=== PATIENT | female | born 1965 | race African-American/Black ===

== ENCOUNTER 2017-02-17 18:47 | Emergency (ER) | payer MEDICAID ==
[~2017-02-17] VITALS: Ht 167.6 cm; Wt 111.6 kg
[~2017-02-17 18:47] MED LIST: ASPI-252 PO; ATOR20TA58 PO; CITA20TA5 PO; CYCL10TA2 PO; DOCU-109 PO; FERR-26 PO; GABA300C8 PO; HYDR-2766 PO; HYDR50TA PO; IBUP-1007 PO; LIDO35.4 TP; LISI40TA PO; METF500T4 PO; QUET25TA5 PO; TRAM50TA PO; TRAZ100T12 PO
[2017-02-17] MEDS ORDERED: oxyCODONE/APAP 10/325 1 TAB TABLET PO ONE (19:15)
--- NOTE | 2017-02-17 19:27 | ED.ADGEN ---
Past Medical History Past Medical History: Anemia, Bipolar, Diabetes-Type II, DVT, High Cholesterol , Hypertension, Other Additional Past Medical Histor: SI,SCIATICA,MOOD DISORDER Past Surgical History: , Other Additional Past Surgical Histo: D&CS Alcohol Use: None Drug Use: None Adult General Chief Complaint Chief Complaint: KNEE SWELLING HPI HPI Patient is a 52 year old -Armenian Armenian female seen at an outside ED 5 days ago at outside ED and diagnosed with DVT of right lower extremity and prescribed Xarelto. Patient is compliant with medication, but reports increased posterior and anterior right leg pain tenderness and swelling. Denies chest pain shortness of breath. No other acute symptoms or complaints. Review of Systems Review of Systems Review symptoms as per history of present illness. All other review symptoms are negative. Current Medications Current Medications Current Medications Medications (Trade) Dose Ordered Sig/Treva Start Time Stop Time Status Last Admin Dose Admin Oxycodone/ Acetaminophen (Percocet 10/325) 1 tab 1X ONCE 02/17/17 19:15 02/17/17 19:16 DC 02/17/17 19:45 1 TAB Tramadol HCl (Ultram) 50 mg 1X ONCE 02/17/17 21:00 02/17/17 21:01 DC 02/17/17 20:55 50 MG Allergies Allergies Allergies Coded Allergies Type Severity Reaction Last Updated Verified levofloxacin Allergy Intermediate 05/29/16 Yes Physical Exam Physical Exam Constitutional: Well developed, well nourished, anxious. Moderate discomfort secondary to pain. HENT: Normocephalic, atraumatic, bilateral external ears normal, oropharynx moist. Eyes: PERRLA, EOMI, conjunctiva normal. Neck: Normal range of motion. Cardiovascular:Heart rate regular. Lungs & Thorax: Bilateral breath sounds clear to auscultation. Abdomen: Bowel sounds normal, soft, no tenderness. Skin: Warm, dry. Back: No tenderness. Extremities: Right lower extremity tenderness swelling, leg approximately 30% more swollen than right extending from foot to distal thigh. Femoral, popliteal pulses 2+ and symmetric. No appreciated erythema. Positive for right Homans sign. Neurologic: Alert and oriented X 3, normal motor function, normal sensory function, no focal deficits noted. Current Patient Data Vital Signs Vital Signs Date Time Temp Pulse Resp B/P (MAP) Pulse Ox O2 Delivery O2 Flow Rate FiO2 02/17/17 20:55 18 Room Air 02/17/17 20:24 87 140/111 (121) 95 02/17/17 18:51 99.1 99.1 Lab Values Laboratory Tests Test 02/17/17 19:45 White Blood Count 6.0 x10^3/uL (4.0-11.0) Red Blood Count 4.16 x10^6/uL (3.50-5.40) Hemoglobin 10.8 g/dL (12.0-15.5) L Hematocrit 33.4 % (36.0-47.0) L Mean Corpuscular Volume 80 fL (79-100) Mean Corpuscular Hemoglobin 26 pg (25-35) Mean Corpuscular Hemoglobin Concent 32 g/dL (31-37) Red Cell Distribution Width 17.2 % (11.5-14.5) H Platelet Count 264 x10^3/uL (140-400) Sodium Level 136 mmol/L (136-145) Potassium Level 3.6 mmol/L (3.5-5.1) Chloride Level 100 mmol/L (98-107) Carbon Dioxide Level 25 mmol/L (21-32) Anion Gap 11 (6-14) Blood Urea Nitrogen 5 mg/dL (7-20) L Creatinine 0.8 mg/dL (0.6-1.0) Estimated GFR (Cockcroft-Gault) 91.5 BUN/Creatinine Ratio 6 (6-20) Glucose Level 352 mg/dL (70-99) H Calcium Level 9.3 mg/dL (8.5-10.1) Total Bilirubin 0.2 mg/dL (0.2-1.0) Aspartate Amino Transferase (AST) 17 U/L (15-37) Alanine Aminotransferase (ALT) 28 U/L (14-59) Alkaline Phosphatase 158 U/L (46-116) H Total Protein 7.8 g/dL (6.4-8.2) Albumin 3.6 g/dL (3.4-5.0) Albumin/Globulin Ratio 0.9 (1.0-1.7) L Laboratory Tests 02/17/17 19:45 Laboratory Tests 02/17/17 19:45 EKG EKG [] Radiology/Procedures Radiology/Procedures [CV ultrasound: Lower extremity chronic nonoccluded DVT of right lower extremity ] Course & Med Decision Making Course & Med Decision Making Pertinent Labs and Imaging studies reviewed. (See chart for details) [Right lower extremity pain in the setting of recently chronic nonoccluded DVT currently anticoagulated. Recommend supportive care with PCP follow-up for management of chronic pain] Dragon Disclaimer Dragon Disclaimer This electronic medical record was generated, in whole or in part, using a voice recognition dictation system. CHELSEY OLEA DO Feb 17, 2017 19:27
[2017-02-17 19:54] LABS: HEMATOCRIT 33.4 % (36.0-47.0); HEMOGLOBIN 10.8 g/dL (12.0-15.5); RED BLOOD COUNT 4.16 x10^6/uL (3.50-5.40); RED CELL DISTRIBUTION WIDTH 17.2 % (11.5-14.5)
[2017-02-17 20:03] LABS: CALCIUM 9.3 mg/dL (8.5-10.1); CREATININE 0.8 mg/dL (0.6-1.0); GFR 91.5; POTASSIUM 3.6 mmol/L (3.5-5.1)
[2017-02-17 20:09] LABS: ALBUMIN 3.6 g/dL (3.4-5.0); ALBUMIN/GLOBULIN RATIO 0.9 (1.0-1.7); TOTAL BILIRUBIN 0.2 mg/dL (0.2-1.0); TOTAL PROTEIN 7.8 g/dL (6.4-8.2)
[2017-02-17 20:24] VITALS: BP 140/111
--- NOTE | 2017-02-17 20:37 | RAD ---
EXAM: Right lower extremity venous Doppler. HISTORY: Increasing right lower extremity pain/swelling. COMPARISON: February 07, 2017, [facility] FINDINGS: Grayscale and Doppler analysis of the right lower extremity deep venous system was performed with graded compression and augmentation. The common femoral, greater saphenous, superficial femoral, popliteal and calf veins were assessed. There is nonocclusive thrombus within the right popliteal, lesser saphenous, posterior tibial veins and one peroneal vein. On the prior study, thrombus was seen within the distal superficial femoral vein. The interval difference may be from differences in visualization in the setting of edema and body habitus. Subcutaneous edema is noted. IMPRESSION: 1. Nonocclusive thrombus within the right popliteal, lesser saphenous, posterior tibial and peroneal veins may be chronic, but appears increased since a prior study on February 07, 2017. However, the suggested difference in extent may be from differing visualization given technical factors. Correlate clinically for increasing symptoms to exclude progression of thrombosis. Electronically signed by: Moreno Haas MD (02/17/2017 8:34 PM)
[2017-02-17] MEDS ORDERED: traMADol 50 MG TABLET PO ONE (21:00)
== END 2017-02-17 21:01 | disposition home or self-care (01) ==
LOC: ER 18:53
DX: I82.531 Chronic embolism and thrombosis of right popliteal vein (principal); E11.9 Type 2 diabetes mellitus without complications; E78.00 Pure hypercholesterolemia, unspecified; I10 Essential (primary) hypertension; F31.9 Bipolar disorder, unspecified; F39 Unspecified mood [affective] disorder; Z79.01 Long term (current) use of anticoagulants; Z88.1 Allergy status to other antibiotic agents
CPT/HCPCS: 36415; 80053; 85027; 93971; 99285-25

== ENCOUNTER 2017-04-22 14:47 | Emergency (ER) | payer MEDICAID, OTHER ==
[~2017-04-22] VITALS: Ht 167.6 cm; Wt 106.6 kg
[2017-04-22 16:11] VITALS: BP 122/74
--- NOTE | 2017-04-22 16:13 | PHYS DOC ---
Past Medical History Past Medical History: Anemia, Anxiety, Bipolar, Depression, Diabetes-Type II, DVT, High Cholesterol, Hypertension, Other Additional Past Medical Histor: SI,SCIATICA,MOOD DISORDER Past Surgical History: , Other Additional Past Surgical Histo: D&CS Alcohol Use: None Drug Use: None Adult General Chief Complaint Chief Complaint: LOWER EXT PAIN HPI HPI Patient is a 52 year old female who presents with RLE pain. Pt states she's had pain like this before with a DVT. Pt previously on Xarelto but pt moved and has to get a new doctor so she is not currently taking. Denies CP or SOB, no h/o PE. No fevers, no injury to the leg. Review of Systems Review of Systems Constitutional: Denies fever or chills [] Eyes: Denies change in visual acuity, redness, or eye pain [] HENT: Denies nasal congestion or sore throat [] Respiratory: Denies cough or shortness of breath [] Cardiovascular: denies chest pain GI: Denies abdominal pain, nausea, vomiting, bloody stools or diarrhea [] : Denies dysuria or hematuria [] Musculoskeletal: Denies back pain Integument: Denies rash or skin lesions [] Neurologic: Denies headache, focal weakness or sensory changes [] Allergies Allergies Allergies Coded Allergies Type Severity Reaction Last Updated Verified levofloxacin Allergy Intermediate 05/29/16 Yes Physical Exam Physical Exam Constitutional: Well developed, well nourished, no acute distress, non-toxic appearance. [] HENT: Normocephalic, atraumatic, bilateral external ears normal, oropharynx moist, no oral exudates, nose normal. [] Eyes: PERRLA, EOMI, conjunctiva normal, no discharge. [] Neck: Normal range of motion, no tenderness, supple, no stridor. [] Cardiovascular:Heart rate regular with regular rhythm, no murmur [] Lungs & Thorax: Bilateral breath sounds clear to auscultation [] Abdomen: soft, no tenderness, no masses, no pulsatile masses. [] Skin: Warm, dry, no erythema, no rash. [] Back: No tenderness, no CVA tenderness. [] Extremities: RLE with mild cord-like structure posterior leg with ttp, distal pulse intact, no distal edema, remaining extremities nontender/nondeformed. Neurologic: Alert and oriented X 3, normal motor function, normal sensory function, no focal deficits noted. [] Psychologic: Affect normal, judgement normal, mood normal. [] Current Patient Data Vital Signs Vital Signs Date Time Temp Pulse Resp B/P (MAP) Pulse Ox O2 Delivery O2 Flow Rate FiO2 04/22/17 16:11 82 18 122/74 (90) 96 Room Air 04/22/17 15:40 98.0 98.0 EKG EKG [] Radiology/Procedures Radiology/Procedures RLE venous doppler: Impression: Negative study. Course & Med Decision Making Course & Med Decision Making Pertinent Labs and Imaging studies reviewed. (See chart for details) venous doppler ordered, reviewed pt's records. No acute DVT. Will restart pt's Xarelto at 10mg daily and pt has f/u appointment on 04/06. Dragon Disclaimer Dragon Disclaimer This electronic medical record was generated, in whole or in part, using a voice recognition dictation system. Departure Departure Impression: Primary Impression: Leg pain Disposition: 01 HOME, SELF-CARE Condition: STABLE Referrals: COSME ELLIOTT MD (PCP) Scripts Rivaroxaban (XARELTO) 10 Mg Tablet 1 TAB PO DAILY, #13 TAB Prov: ENID FENTON MD 04/22/17 ENID FENTON MD Apr 22, 2017 16:13
--- NOTE | 2017-04-22 16:39 | RAD ---
Right lowish of any venous duplex study 04/22/2017 Clinical History: Right leg pain.. Technique: Using a combination of real time ultrasound imaging and color-flow and pulse Doppler imaging techniques along with graded compression and augmentation, duplex evaluation of the deep venous system of the right lower extremity was performed. Multiple images were obtained. Findings: There is no sonographic evidence of deep venous thrombosis involving the visualized deep venous structures of right lower extremity. Impression: Negative study.
[2017-04-22] MEDS ORDERED: RIVA10TA PO (17:08)
== END 2017-04-22 17:18 | disposition home or self-care (01) ==
LOC: ER 14:47
DX: M79.604 Pain in right leg (principal); E11.9 Type 2 diabetes mellitus without complications; I10 Essential (primary) hypertension; F31.9 Bipolar disorder, unspecified; E78.00 Pure hypercholesterolemia, unspecified; F41.9 Anxiety disorder, unspecified; Z86.718 Personal history of other venous thrombosis and embolism; Z88.1 Allergy status to other antibiotic agents
CPT/HCPCS: 93971; 99284-25

== ENCOUNTER 2017-12-07 20:23 | Inpatient (IN) | payer OTHER ==
[2017-12-07 20:53] LABS: ADD MAN DIFF? NO
[2017-12-07 20:57] LABS: BASO # 0.2 x10^3/uL (0.0-0.2); BASO % 2 % (0-3); EOS % 0 % (0-3); HEMATOCRIT 35.2 % (36.0-47.0); HEMOGLOBIN 11.2 g/dL (12.0-15.5); LYMPH # 2.8 x10^3/uL (1.0-4.8); LYMPH % 25 % (24-48); MEAN CORPUSCULAR HEMOGLOBIN 24 pg (25-35); MEAN CORPUSCULAR HGB CONC 32 g/dL (31-37); MEAN CORPUSCULAR VOLUME 76 fL (79-100); MONO # 0.8 x10^3/uL (0.0-1.1); MONO % 8 % (0-9); NEUT # 7.1 x10^3uL (1.8-7.7); NEUT % 65 % (31-73); PLATELET COUNT 372 x10^3/uL (140-400); RED BLOOD COUNT 4.65 x10^6/uL (3.50-5.40); RED CELL DISTRIBUTION WIDTH 18.1 % (11.5-14.5); WHITE BLOOD COUNT 10.9 x10^3/uL (4.0-11.0)
[2017-12-07 21:08] LABS: ANION GAP 13 (6-14); BLOOD UREA NITROGEN 12 mg/dL (7-20); BUN/CREATININE RATIO 13 (6-20); CALCIUM 9.5 mg/dL (8.5-10.1); CARBON DIOXIDE 21 mmol/L (21-32); CHLORIDE 106 mmol/L (98-107); CREATININE 0.9 mg/dL (0.6-1.0); GFR 79.9; GLUCOSE 121 mg/dL (70-99); POTASSIUM 4.3 mmol/L (3.5-5.1); SODIUM 140 mmol/L (136-145)
[2017-12-07 21:17] LABS: ALBUMIN/GLOBULIN RATIO 0.8 (1.0-1.7); ALK PHOS 118 U/L (46-116); ALT (SGPT) 27 U/L (14-59); AST (SGOT) 25 U/L (15-37); MAGNESIUM 1.7 mg/dL (1.8-2.4); TOTAL BILIRUBIN 0.6 mg/dL (0.2-1.0); TOTAL PROTEIN 8.9 g/dL (6.4-8.2)
[2017-12-07 21:17] LABS: TROPONINI < 0.017 ng/mL (0.000-0.055)
[2017-12-07 21:22] LABS: NT-PRO BNP 219 pg/mL (0-124)
[2017-12-07 21:22] LABS: CKMB INDEX 0.5 % (0-4); CKMB MASS 1.5 ng/mL (0.0-3.6); CREATINE KINASE 306 U/L (26-192)
[2017-12-07] MEDS: KETOROLAC 30 MG/ML INJ. IV (21:33)
[2017-12-08] MEDS: MORPHINE SULFATE 4 MG/ML DISP.SYRIN. IV ×3 (02:14→20:32)
[2017-12-08 02:17] LABS: TROPONINI < 0.017 ng/mL (0.000-0.055)
[2017-12-08 06:16] LABS: TROPONINI < 0.017 ng/mL (0.000-0.055)
[2017-12-08] MEDS: metFORMIN 500 MG TABLET PO ×2 (08:49→16:54)
[2017-12-08] MEDS: SERTRALINE 50 MG TABLET. PO (08:50)
[2017-12-08] MEDS: METHOCARBAMOL 500 MG TABLET PO ×2 (08:50→20:31)
[2017-12-08] MEDS: QUEtiapine 100 MG TABLET. PO ×2 (08:50→20:31)
[2017-12-08] MEDS: DICYCLOMINE HCL 10 MG CAPSULE PO ×3 (08:50→20:30)
[2017-12-08] MEDS: METOPROLOL TART IMMED RELEASE 25 MG TABLET. PO ×2 (08:51→20:30)
[2017-12-08] MEDS: ASPIRIN ENTERIC COATED 81 MG TABLET.DR. PO (12:44)
[2017-12-08] MEDS: PANTOPRAZOLE 40 MG TABLET.DR. PO (16:54)
[2017-12-08] MEDS: ATORVASTATIN CALCIUM 20 MG TABLET PO (20:31)
[2017-12-08] MEDS: PRAZOSIN 1 MG CAPSULE. PO (20:38)
[2017-12-09] MEDS: METHOCARBAMOL 500 MG TABLET PO ×2 (09:47→21:30)
[2017-12-09] MEDS: QUEtiapine 100 MG TABLET. PO ×2 (09:47→21:30)
[2017-12-09] MEDS: PANTOPRAZOLE 40 MG TABLET.DR. PO (09:48)
[2017-12-09] MEDS: METOPROLOL TART IMMED RELEASE 25 MG TABLET. PO ×2 (09:48→21:30)
[2017-12-09] MEDS: ASPIRIN ENTERIC COATED 81 MG TABLET.DR. PO (09:48)
[2017-12-09] MEDS: metFORMIN 500 MG TABLET PO ×2 (09:48→16:39)
[2017-12-09] MEDS: SERTRALINE 50 MG TABLET. PO (09:48)
[2017-12-09] MEDS: DICYCLOMINE HCL 10 MG CAPSULE PO ×3 (09:49→21:30)
[2017-12-09] MEDS: traMADol 50 MG TABLET PO ×2 (15:15→21:31)
[2017-12-09] MEDS: PRAZOSIN 1 MG CAPSULE. PO (21:00)
[2017-12-09] MEDS: ATORVASTATIN CALCIUM 20 MG TABLET PO (21:30)
[2017-12-10] MEDS: QUEtiapine 100 MG TABLET. PO (09:20)
[2017-12-10] MEDS: PANTOPRAZOLE 40 MG TABLET.DR. PO (09:21)
[2017-12-10] MEDS: METOPROLOL TART IMMED RELEASE 25 MG TABLET. PO (09:21)
[2017-12-10] MEDS: ASPIRIN ENTERIC COATED 81 MG TABLET.DR. PO (09:21)
[2017-12-10] MEDS: DICYCLOMINE HCL 10 MG CAPSULE PO (09:21)
[2017-12-10] MEDS: metFORMIN 500 MG TABLET PO (09:21)
[2017-12-10] MEDS: METHOCARBAMOL 500 MG TABLET PO (09:21)
[2017-12-10] MEDS: SERTRALINE 50 MG TABLET. PO (09:21)
[2017-12-10] MEDS: traMADol 50 MG TABLET PO (09:27)
== END 2017-12-10 13:30 | disposition home or self-care (01) | DRG 74 ==
LOC: ER 20:23 → 6 SOUTH 22:51
DX: E11.43 Type 2 diabetes mellitus with diabetic autonomic (poly)neuropathy (principal); K81.1 Chronic cholecystitis; K31.84 Gastroparesis; R07.89 Other chest pain; I25.10 Atherosclerotic heart disease of native coronary artery without angina pectoris; E66.9 Obesity, unspecified; E78.5 Hyperlipidemia, unspecified; F31.9 Bipolar disorder, unspecified; G47.33 Obstructive sleep apnea (adult) (pediatric); I10 Essential (primary) hypertension; K21.9 Gastro-esophageal reflux disease without esophagitis; K59.00 Constipation, unspecified; K83.8 Other specified diseases of biliary tract; N92.0 Excessive and frequent menstruation with regular cycle; M19.90 Unspecified osteoarthritis, unspecified site; Z68.38 Body mass index [BMI] 38.0-38.9, adult; Z80.9 Family history of malignant neoplasm, unspecified; Z82.49 Family history of ischemic heart disease and other diseases of the circulatory system; Z87.11 Personal history of peptic ulcer disease; Z91.19 Patient's noncompliance with other medical treatment and regimen
CPT/HCPCS: 36415; 70450; 71045; 76705; 78264; 80053; 82553; 83735; 83880; 84484; 85025; 93005; 96374; 99285-25; A9541; J1885; J2270

== ENCOUNTER 2018-11-30 12:08 | Emergency (ER) | payer OTHER ==
[~2018-11-30] VITALS: Ht 167.6 cm; Wt 97.5 kg
[~2018-11-30 12:08] MED LIST changes: +ASPI-612 PO; +BUPR300T3 PO; +CELE200C PO; -CITA20TA5 PO; +CITA20TA6 PO; +DICY20TA3 PO; -FERR-26 PO; +FERR325T14 PO; +GABA300C18 PO; -GABA300C8 PO; -HYDR-2766 PO; +HYDR-2769 PO; +HYDR50CA2 PO; +LISI-130 PO; -LISI40TA PO; +METF500T16 PO; -METF500T4 PO; +METH-37 PO; +METO25TA4 PO; +PANT20TA2 PO; +PRAZ2CAP2 PO; +QUET200T4 PO; +QUET400T4 PO; +RIVA10TA PO; +SERT100T PO; +TRAZ-86 PO; -TRAZ100T12 PO
--- NOTE | 2018-11-30 12:40 | PHYS DOC ---
Past Medical History Past Medical History: Diabetes-Type II, DVT, Hypertension Additional Past Medical Histor: SI,SCIATICA,MOOD DISORDER Past Surgical History: Additional Past Surgical Histo: D&CS Alcohol Use: None Drug Use: None Adult General Chief Complaint Chief Complaint: MECHANICAL FALL HPI HPI Patient is a 53 year old female presents to the ED complaining of fall 8 hours ago. Patient states this morning she was spring cleaning and reaching on top of the cupboard when she slipped and fell off after trying to reach for something. States she landed on her right hip. States she did hit her head. Complains of headache, neck pain, right hip and right knee pain. Describes the pain as sharp. Rates her pain as 8 out of 10. Patient states she called the Medicaid transport to bring her to the ED. Denies LOC, vision changes, nausea/ vomiting, symptoms prior to fall or use of blood thinners. Review of Systems Review of Systems Constitutional: Denies fever or chills [] Eyes: Denies change in visual acuity, redness, or eye pain [] HENT: Denies nasal congestion or sore throat [] Respiratory: Denies cough or shortness of breath [] Cardiovascular: No additional information not addressed in HPI [] GI: Denies abdominal pain, nausea, vomiting, bloody stools or diarrhea [] : Denies dysuria or hematuria [] Musculoskeletal:Complains of back pain, knee pain. Integument: Denies rash or skin lesions [] Neurologic: Complains of headache. Denies focal weakness or sensory changes [] Endocrine: Denies polyuria or polydipsia [] All other systems were reviewed and found to be within normal limits, except as documented in this note. Current Medications Current Medications Current Medications Medications (Trade) Dose Ordered Sig/Treva Start Time Stop Time Status Last Admin Dose Admin Acetaminophen/ Hydrocodone Bitart (Lortab 5/325) 1 tab 1X ONCE 11/30/18 12:45 11/30/18 12:48 DC 11/30/18 12:54 1 TAB Ketorolac Tromethamine (Toradol Im) 60 mg 1X ONCE 11/30/18 12:45 11/30/18 12:48 DC 11/30/18 12:55 60 MG Allergies Allergies Allergies Coded Allergies Type Severity Reaction Last Updated Verified levofloxacin Allergy Intermediate 05/29/16 Yes Physical Exam Physical Exam Constitutional: Well developed, well nourished, no acute distress, non-toxic appearance. [] HENT: Normocephalic, atraumatic, bilateral external ears normal, oropharynx moist, no oral exudates, nose normal. [] Eyes: PERRLA, EOMI, conjunctiva normal, no discharge. [] Neck: mild right paraspinal cervical tenderness. Normal range of motion, no midline tenderness, supple, no stridor. [] Cardiovascular:Heart rate regular rhythm, no murmur [] Lungs & Thorax: Bilateral breath sounds clear to auscultation [] Abdomen: Bowel sounds normal, soft, no tenderness, no masses, no pulsatile masses. [] Skin: Warm, dry, no erythema, no rash. [] Back: mild paraspinal lumbar tenderness, no midline tenderness. FROM. NV intact. No overlying skin changes. no CVA tenderness. [] Extremities: mild anterior-lateral right knee tenderness, no cyanosis, no clubbing, ROM intact, no edema. [] Neurologic: Alert and oriented X 3, normal motor function, normal sensory function, no focal deficits noted. [] Psychologic: Affect normal, judgement normal, mood normal. [] Current Patient Data Vital Signs Vital Signs Date Time Temp Pulse Resp B/P (MAP) Pulse Ox O2 Delivery O2 Flow Rate FiO2 11/30/18 14:36 78 16 97 11/30/18 12:54 Room Air 11/30/18 12:27 98.8 157/93 (114) 98.8 EKG EKG [] Radiology/Procedures Radiology/Procedures PROCEDURE: HIP RIGHT 2V WITH PELVIS HIP RIGHT 2V WITH PELVIS History: Fall this a.m., back and leg pain Comparison: None. Findings: AP view of the pelvis and 2 additional views of the right hip are submitted. There are likely phleboliths in the pelvis. No acute fracture or dislocation is identified by radiographs. Impression: 1. No acute radiographic abnormality is identified. [] PROCEDURE: SACRUM & COCCYX 3V 3 views of the sacrum and coccyx 11/30/2018 INDICATION: Sacral and coccygeal pain following fall today. COMPARISON STUDY: None FINDINGS: No evidence of acute fracture is identified. Sacral and coccygeal alignment on lateral view is within normal limits. No acute soft tissue changes are appreciated. IMPRESSION: No radiographic evidence of acute osseous abnormality PROCEDURE: LUMBAR SPINE 2-3V 3 views of the lumbar spine 11/30/2018 INDICATION: Low back pain following fall today. COMPARISON STUDY: None FINDINGS: No evidence of acute fracture or alignment abnormality is identified. Vertebral body heights are maintained. Disc spaces are maintained. No evidence of spondylolysis or spondylolisthesis is seen. No acute soft tissue changes are identified IMPRESSION: No evidence of acute fracture or alignment abnormality of the lumbar spine PROCEDURE: LUMBAR SPINE 2-3V 3 views of the lumbar spine 11/30/2018 INDICATION: Low back pain following fall today. COMPARISON STUDY: None FINDINGS: No evidence of acute fracture or alignment abnormality is identified. Vertebral body heights are maintained. Disc spaces are maintained. No evidence of spondylolysis or spondylolisthesis is seen. No acute soft tissue changes are identified IMPRESSION: No evidence of acute fracture or alignment abnormality of the lumbar spine PROCEDURE: CHEST AP ONLY Single view of the chest. 11/30/2018 2:06 PM Indication: PT FELL THIS TODAY WHILE CLEANING KITCHEN, EVALUATE FOR INJURY Comparison: None Findings: Lordotic projection noted. No pneumothorax or pleural effusion is identified. No displaced rib fractures are seen. Heart size is top normal, likely augmented by portable technique. No focal consolidative infiltrates are seen. IMPRESSION: No radiographic evidence of acute cardiopulmonary process PROCEDURE: CT HEAD AND CERVICAL SPINE WO CT head and cervical spine without contrast History: Fall today, head and neck pain Technique: Noncontrast CT imaging was performed of the head and cervical spine. Multiplanar reconstruction images are submitted. Exposure: One or more of the following individualized dose reduction techniques were utilized for this examination: 1. Automated exposure control 2. Adjustment of the mA and/or kV according to patient size 3. Use of iterative reconstruction technique. Head CT Comparison: December 08, 2017 Findings: No acute extra-axial or parenchymal hemorrhage is identified. There is no significant intra-axial mass effect, midline shift, or extra-axial fluid collection. The gibbons-white differentiation of the major vascular territories is preserved. Ventricular size is within normal limits. The mastoid air cells and the visualized paranasal sinuses are aerated. There is no significant focal calvarial abnormality. Impression: 1. No acute intracranial abnormality is identified. Cervical spine CT Comparison: None Findings: No acute cervical spine fracture is identified. Vertebral body stature and AP alignment are within normal limits. Atlanto-axial distance is within normal limits. There is appropriate alignment of lateral masses of C1 relative to C2. Occipital condylar-C1 relationship is maintained. There is moderate degenerative disc disease C5-6. There is mild spondylosis C5-6 and C6-7. No significant osseous cervical neural foramina compromise or spinal stenosis identified. Impression: 1. No acute cervical spine fracture is identified. 2. There is moderate degenerative disc disease and mild spondylosis C5-6. Course & Med Decision Making Course & Med Decision Making Pertinent Labs and Imaging studies reviewed. (See chart for details) []Discussed imaging findings with patient. Patient's pain improved in the ED. States she is feeling much better. No focal neural deficits. Patient able to ambulate without assistance. Discussed symptomatic treatment and follow-up with orthopedics if pain persists. Provided contact information/education. Discussed reasons to return to the ED. Patient understands and agrees with plan. Dragon Disclaimer Dragon Disclaimer This electronic medical record was generated, in whole or in part, using a voice recognition dictation system. Departure Departure Impression: Primary Impression: Head injury Additional Impressions: Hip sprain Back sprain Muscle strain Disposition: 01 HOME, SELF-CARE Condition: IMPROVED Referrals: DIETER ALFARO (PCP) Patient Instructions: Head Injury, Adult, Joint Sprain, Muscle Strain Problem Qualifiers SLIM MCKEON Nov 30, 2018 12:40
[2018-11-30] MEDS ORDERED: HYDROcodone/APAP 5/325MG 1 TAB TABLET PO ONE (12:45)
[2018-11-30] MEDS ORDERED: KETOROLAC 60 MG/2 ML VIAL. IM ONE (12:45)
--- NOTE | 2018-11-30 13:50 | RAD ---
CT head and cervical spine without contrast History: Fall today, head and neck pain Technique: Noncontrast CT imaging was performed of the head and cervical spine. Multiplanar reconstruction images are submitted. Exposure: One or more of the following individualized dose reduction techniques were utilized for this examination: 1. Automated exposure control 2. Adjustment of the mA and/or kV according to patient size 3. Use of iterative reconstruction technique. Head CT Comparison: December 08, 2017 Findings: No acute extra-axial or parenchymal hemorrhage is identified. There is no significant intra-axial mass effect, midline shift, or extra-axial fluid collection. The gibbons-white differentiation of the major vascular territories is preserved. Ventricular size is within normal limits. The mastoid air cells and the visualized paranasal sinuses are aerated. There is no significant focal calvarial abnormality. Impression: 1. No acute intracranial abnormality is identified. Cervical spine CT Comparison: None Findings: No acute cervical spine fracture is identified. Vertebral body stature and AP alignment are within normal limits. Atlanto-axial distance is within normal limits. There is appropriate alignment of lateral masses of C1 relative to C2. Occipital condylar-C1 relationship is maintained. There is moderate degenerative disc disease C5-6. There is mild spondylosis C5-6 and C6-7. No significant osseous cervical neural foramina compromise or spinal stenosis identified. Impression: 1. No acute cervical spine fracture is identified. 2. There is moderate degenerative disc disease and mild spondylosis C5-6. Electronically signed by: Mihir Caballero MD (11/30/2018 1:47 PM) [email or web address]
--- NOTE | 2018-11-30 14:43 | RAD ---
3 views of the sacrum and coccyx 11/30/2018 INDICATION: Sacral and coccygeal pain following fall today. COMPARISON STUDY: None FINDINGS: No evidence of acute fracture is identified. Sacral and coccygeal alignment on lateral view is within normal limits. No acute soft tissue changes are appreciated. IMPRESSION: No radiographic evidence of acute osseous abnormality Electronically signed by: Viraj Schaffer MD (11/30/2018 2:41 PM) [id number]
--- NOTE | 2018-11-30 14:43 | RAD ---
Single view of the chest. 11/30/2018 2:06 PM Indication: PT FELL THIS TODAY WHILE CLEANING KITCHEN, EVALUATE FOR INJURY Comparison: None Findings: Lordotic projection noted. No pneumothorax or pleural effusion is identified. No displaced rib fractures are seen. Heart size is top normal, likely augmented by portable technique. No focal consolidative infiltrates are seen. IMPRESSION: No radiographic evidence of acute cardiopulmonary process Electronically signed by: Viraj Schaffer MD (11/30/2018 2:40 PM) [id number]
--- NOTE | 2018-11-30 14:45 | RAD ---
3 views of the lumbar spine 11/30/2018 INDICATION: Low back pain following fall today. COMPARISON STUDY: None FINDINGS: No evidence of acute fracture or alignment abnormality is identified. Vertebral body heights are maintained. Disc spaces are maintained. No evidence of spondylolysis or spondylolisthesis is seen. No acute soft tissue changes are identified IMPRESSION: No evidence of acute fracture or alignment abnormality of the lumbar spine Electronically signed by: Viraj Schaffer MD (11/30/2018 2:42 PM) [id number]
--- NOTE | 2018-11-30 14:45 | RAD ---
3 views right knee. 11/30/2018 2:06 PM Indication: PT HAVING LEG AND BACK PAIN , PT FELL THIS AM WHILE CLEANING IN KITCHEN,. Comparison: None Findings: There is no acute fracture or dislocation. Articular surfaces are uninterrupted and smooth. Soft tissues are unremarkable. Impression: No evidence of acute osseous abnormality. Electronically signed by: Viraj Schaffer MD (11/30/2018 2:42 PM) [id number]
--- NOTE | 2018-11-30 14:54 | RAD ---
HIP RIGHT 2V WITH PELVIS History: Fall this a.m., back and leg pain Comparison: None. Findings: AP view of the pelvis and 2 additional views of the right hip are submitted. There are likely phleboliths in the pelvis. No acute fracture or dislocation is identified by radiographs. Impression: 1. No acute radiographic abnormality is identified. Electronically signed by: Mihir Caballero MD (11/30/2018 2:51 PM) [email or web address]
[2018-11-30 15:11] VITALS: BP 175/87
== END 2018-11-30 15:13 | disposition home or self-care (01) ==
LOC: ER 12:08
DX: S16.1XXA Strain of muscle, fascia and tendon at neck level, initial encounter (principal); S39.012A Strain of muscle, fascia and tendon of lower back, initial encounter; S73.191A Other sprain of right hip, initial encounter; S09.8XXA Other specified injuries of head, initial encounter; M25.561 Pain in right knee; Z98.890 Other specified postprocedural states; I10 Essential (primary) hypertension; E11.9 Type 2 diabetes mellitus without complications; Z86.718 Personal history of other venous thrombosis and embolism; Z88.1 Allergy status to other antibiotic agents; W01.0XXA Fall on same level from slipping, tripping and stumbling without subsequent striking against object, initial encounter; Y93.89 Activity, other specified; Y92.89 Other specified places as the place of occurrence of the external cause; Y99.8 Other external cause status
CPT/HCPCS: 70450; 71045; 72100; 72125; 72220; 73502; 73562; 96372; 99284; J1885